=== PATIENT | female | born 1970 | race Asian ===

== ENCOUNTER 2022-03-31 15:06 | Outpatient (CLI) | payer BC | END 2022-03-31 15:07 | disposition home or self-care (01) | LOC: RAD 15:06 | PROVIDERS: ATTEND Nurse Practitioner Family | DX: M47.816 Spondylosis without myelopathy or radiculopathy, lumbar region (principal); M54.6 Pain in thoracic spine; M41.9 Scoliosis, unspecified | CPT/HCPCS: 72070; 72100 ==